=== PATIENT | female | born 1960 | race Caucasian/White ===

== ENCOUNTER 2019-05-24 12:44 | Day surgery (SDC) | payer MEDICAID ==
[~2019-05-24] VITALS: Ht 162.6 cm; Wt 81.2 kg
[2019-05-24] MEDS ORDERED: OMEPRAZOLE (13:21)
[2019-05-24] MEDS ORDERED: VENTOLIN (13:21)
[2019-05-24] MEDS ORDERED: PREDNISONE (13:21)
[2019-05-24] MEDS ORDERED: [UNRECOGNIZED DRUG - OTHER] (13:21)
[2019-05-24] MEDS ORDERED: SULFAMETHOXAZOLE (13:21)
[2019-05-24] MEDS ORDERED: OYSTER SHELL CALCIUM (13:21)
[2019-05-24] MEDS ORDERED: TRIAMTERENE (13:21)
[2019-05-24] MEDS ORDERED: CALCIUM CARBONATE (13:21)
[2019-05-24] MEDS ORDERED: ALBUTEROL SULFATE (13:21)
[2019-05-24 13:25] VITALS: Ht 162.6 cm; Wt 81.2 kg
[2019-05-24 13:26] VITALS: BP 101/59; PULSE 61; RESP 14
[2019-05-24] MEDS ORDERED: PROPOFOL 20 ML ONE (13:36)
--- NOTE | 2019-05-24 13:36 | PREAC ---
Date/Time of Note Date/Time of Note DATE: 05/24/19 TIME: 13:34 Anesthesia Eval and Record Evaluation Time Pre-Procedure Interview DATE: 05/24/19 TIME: 13:34 Age 58 Sex female NPO: 8 hrs Preoperative diagnosis screening Planned procedure colonoscopy Past Medical History Past Medical History: Includes Cardio: HTN, Dyslipidemia Pulm: Other (ILD, on lung transplant list) Hepatic: Other (hep C) GI: Obesity Surgery & Anesthesia Issues No known issue Meds Anticoagulation: No Beta Ernst within 24 hr: No Reason Beta Ernst not given: Pt. not on B-Ernst Reported Medications [Oyster Shell Calcium] No Conflict Check 05/24/19 [Alendronate Sulfate] No Conflict Check 05/24/19 [Albuterol Sulfate] No Conflict Check 05/24/19 [Ventolin] No Conflict Check 05/24/19 [Ventolin] No Conflict Check 05/24/19 [Triamterene] No Conflict Check 05/24/19 [Sulfamethoxazole] No Conflict Check 05/24/19 [Calcium Carbonate] No Conflict Check 05/24/19 [Omeprazole] No Conflict Check 05/24/19 [Prednisone] No Conflict Check 05/24/19 Meds reviewed: Yes Allergies Coded Allergies: No Known Allergy (Unverified , 05/24/19) Allergies Reviewed: Yes Labs/Studies Labs Reviewed: Reviewed by anesthesiologist test: N/A Pre-procedure Exam Last vitals Vital Signs Date Temp Pulse Resp B/P (MAP) Pulse Ox O2 O2 Flow FiO2 Time Delivery Rate 05/24/19 98.2 61 14 101/59 100 Room Air 4.0 13:26 (73) Nasal Cannula Airway: Adequate mouth opening, Adequate thyromental dist Mallampati: Mallampati II Teeth: Normal Lung: Normal Heart: Normal ASA Physical Status ASA physical status: 3 Emergency: None Planned Pain Management Parenteral pain med, Local by surgeon Pre-operative Attestations Prior to commencing anesthesia and surgery, the patient was re-evaluated, there was verification of: *The patient's identity *The results of appropriate recent lab work and preoperative vital signs *The above evaluation not changing prior to induction *Anesthetic plan, risk benefits, alternative and complications discussed with patient/family; questions answered; patient/family understands, accepts and wishes to proceed. EMILE HOLLY May 24, 2019 13:36
--- NOTE | 2019-05-24 14:33 | PAC ---
Date/Time of Note Date/Time of Note DATE: 05/24/19 TIME: 14:32 Post-Anesthesia Notes Post-Anesthesia Note Last documented vital signs bp 84/60 spo2 100% rr 20 temp 97.5 hr 74 Vital Signs Date Temp Pulse Resp B/P (MAP) Pulse Ox O2 O2 Flow FiO2 Time Delivery Rate 05/24/19 98.2 61 14 101/59 100 Room Air 4.0 13:26 (73) Nasal Cannula Activity: WNL Respiratory function: WNL Cardiovascular function: WNL Mental status: Baseline Pain reasonably controlled: Yes Hydration appropriate: Yes Nausea/Vomiting absent: Yes EMILE HOLLY May 24, 2019 14:33
[2019-05-24 14:47] VITALS: BP 96/60; RESP 20
== END 2019-05-24 15:16 | disposition home or self-care (01) ==
LOC: GIL 12:44
PROVIDERS: ATTEND Internal Medicine Gastroenterology
DX: Z12.11 Encounter for screening for malignant neoplasm of colon (principal); K64.8 Other hemorrhoids; K57.30 Diverticulosis of large intestine without perforation or abscess without bleeding
CPT/HCPCS: 45378; Z7610